=== PATIENT | female | born 1965 | race Caucasian/White ===

== ENCOUNTER 2017-11-15 18:18 | Emergency (ER) | payer MEDICAID ==
[2017-11-15] MEDS ORDERED: NS 0.9% 1000 ML* 1,000 ML IV ONE (18:46)
[2017-11-15] MEDS ORDERED: Meclizine TAB* 12.5 MG PO ONE (18:46)
--- NOTE | 2017-11-15 19:04 | ED ---
Dizziness - HPI Summary HPI Summary: 51-year-old female presents with intermittent vertigo since Monday. She admits to sinus congestion and bilateral ear pain greatest on the left. She states her vertigo is greatest with when laying down and to the left. She admits to intermittent chest tightness. She states that this chest tightness occurs once every other month. She states now one can find a cause for the chest tightness. She states this is no difference to the chest tightness except it never occurs with vertigo. She admits occasional shortness of breath. She admits to cough. She admits to a sore throat that started today. She admits to feeling warm but does not any known fevers. She denies abdominal pain. She denies any vomiting. States she is nauseous with the vertigo. She describes vertigo as the room spinning. She denies any headache. - History Of Current Complaint Chief Complaint: EDGeneral Stated Complaint: PROBLEM WITH BOTH EARS/CHEST PAIN Time Seen by Provider: 11/15/17 18:33 - Allergies/Home Medications Allergies/Adverse Reactions: Allergies Allergy/AdvReac Type Severity Reaction Status Date / Time Sulfa (Sulfonamide Allergy Anaphylatic Verified 11/15/17 19:54 Antibiotics) Shock PMH/Surg Hx/FS Hx/Imm Hx Endocrine/Hematology History: Denies: Hx Diabetes, Hx Thyroid Disease Cardiovascular History: Denies: Hx Congestive Heart Failure, Hx Deep Vein Thrombosis, Hx Hypertension , Hx Myocardial Infarction, Hx Pacemaker/ICD Respiratory History: Reports: Hx Asthma - Exercise-induced asthma. Denies: Hx Chronic Obstructive Pulmonary Disease (COPD), Hx Lung Cancer, Hx Pneumonia, Hx Pulmonary Embolism GI History: Reports: Hx Gastroesophageal Reflux Disease Denies: Hx Gall Bladder Disease, Hx Gastrointestinal Bleed, Hx Ulcer, Hx Urosepsis History: Denies: Hx Kidney Stones, Hx Renal Disease Sensory History: Denies: Hx Hearing Aid Neurological History: Denies: Hx Dementia, Hx Migraine, Hx Seizures, Hx Transient Ischemic Attacks (TIA) Psychiatric History: Denies: Hx Anxiety, Hx Depression, Hx Panic Disorder, Hx Schizophrenia, Hx Bipolar Disorder - Cancer History Hx Chemotherapy: No Hx Radiation Therapy: No - Surgical History Surgery Procedure, Year, and Place: HYSTERECTOMY. DEVIATED SEPTUM 1991 Infectious Disease History: Unable to Obtain/Confirm Infectious Disease History: Denies: Traveled Outside the [place] in Last 30 Days - Family History Known Family History: Positive: Cardiac Disease - grandfather - mi, Other - mother - osteoporosis No blood clotting problems in the family. - Social History Alcohol Use: Rare Hx Substance Use: No Substance Use Type: Reports: None Hx Tobacco Use: No Smoking Status (MU): Never Smoked Tobacco Review of Systems Negative: Fever Positive: Ear Ache, Nasal Discharge Positive: Chest Pain Positive: Shortness Of Breath, Cough Neurological: Other - vertigo All Other Systems Reviewed And Are Negative: Yes Physical Exam Triage Information Reviewed: Yes Vital Signs On Initial Exam: Initial Vitals Temp Pulse Resp BP Pulse Ox 99.3 F 76 16 134/76 100 11/15/17 18:26 11/15/17 18:26 11/15/17 18:26 11/15/17 18:26 11/15/17 18:26 Vital Signs Reviewed: Yes Appearance: Positive: Well-Appearing Skin: Positive: Warm, Dry Head/Face: Positive: Normal Head/Face Inspection Eyes: Positive: Normal, EOMI, WILBERT, Conjunctiva Clear, Other: - nystagmus on exam ENT: Positive: Normal ENT inspection, Pharynx normal, TMs normal Neck: Positive: Supple, Nontender, No Lymphadenopathy Respiratory/Lung Sounds: Positive: Clear to Auscultation, Breath Sounds Present Cardiovascular: Positive: Normal, RRR Abdomen Description: Positive: Nontender, Soft Bowel Sounds: Positive: Present Neurological: Positive: Sensory/Motor Intact, Alert, Oriented to Person Place, Time, CN Intact II-III, [place] [place] Test - to left positive Psychiatric: Positive: Normal Diagnostics - Vital Signs Vital Signs Temp Pulse Resp BP Pulse Ox 11/15/17 18:26 99.3 F 76 16 134/76 100 - Laboratory Result Diagrams: 11/15/17 18:52 11/15/17 18:52 Lab Statement: Any lab studies that have been ordered have been reviewed, and results considered in the medical decision making process. - Radiology chest Xray Interpretation: No Acute Changes Radiology Interpretation Completed By: Radiologist - EKG No standard instances Cardiac Rate: NL EKG Rhythm: Sinus Rhythm ST Segment: Normal EKG Interpretation: normal sinus rhythmn Re-Evaluation - Re-Evaluation First Eval Change: Improved Comment: feeling better after fluids and meclizine Dizzy Course/Dx - Course Course Of Treatment: 51-year-old female presents with intermittent vertigo since Monday. She admits to sinus congestion and bilateral ear pain greatest on the left. She states her vertigo is greatest with when laying down and to the left. She admits to intermittent chest tightness. She states that this chest tightness occurs once every other month. She states now one can find a cause for the chest tightness. She states this is no difference to the chest tightness except it never occurs with vertigo. She admits occasional shortness of breath. She admits to cough. She admits to a sore throat that started today. She admits to feeling warm but does not any known fevers. She denies abdominal pain. She denies any vomiting. States she is nauseous with the vertigo. She describes vertigo as the room spinning. She denies any headache. on exam has nystagmus. lungs CTA. pos lucie-hallpike. chest xray normal. labs wnl except flu B pos. will try steriod and tessalon for cough. will give meclizine for vertigo. could be BPPV vs vestibular neuritis. will have follow up with primary. patient understand and agrees with plan. - Diagnoses Differential Diagnosis/HQI/PQRI: Benign Paroxysmal Positional Vertigo, Hypovolemia, Labyrinthitis Provider Diagnoses: Influenza, Vertigo Discharge - Discharge Plan Condition: Good Disposition: HOME Prescriptions: Benzonatate CAP* [Tessalon 100 MG CAP*] 100 mg PO TID PRN #21 cap PRN Reason: Cough Meclizine TAB* [Antivert 12.5 TAB*] 25 mg PO QID PRN #16 tab PRN Reason: Vertigo predniSONE TAB* [Deltasone TAB*] 50 mg PO DAILY #4 tab Patient Education Materials: Vertigo (ED), Influenza (ED) Forms: *Work Release Referrals: Shiela Gustafson CASHIER [Primary Care Provider] - [facility] Physical therapy,PT [Medical Doctor] - Ronda Gonzalez MD [Medical Doctor] - Additional Instructions: Take meclizine up to 4 tablets a day for vertigo Take Tylenol and ibuprofen for muscle aches and fever every 6 hours Take steroid once a day for 4 more days Take tessalon three times a day for cough Saline rinse can be used multiple times a day for nasal congestion Can use bendaryl for nasal congestion Drink plenty of fluids Follow up with primary within 5 days Follow up with PT A referral was given for It [employer] Manager Return to ED if develop any new or worsening symptoms
[2017-11-15 19:05] LABS: ABS Basophils 0 10^3/ul (0-0.2); ABS Eosinophils 0.1 10^3/ul (0-0.6); ABS Lymphocytes 1.2 10^3/ul (1.0-4.8); ABS Monocytes 0.7 10^3/ul (0-0.8); ABS Neutrophils 2.8 10^3/ul (1.5-7.7); ABS Nucleated RBC 0 10^3/ul; Eosinophil % 2.5 % (0-6); Hematocrit 44 % (35-47); Hemoglobin 14.2 g/dl (12.0-16.0); Lymphocyte % 25.1 % (25-47); Mean Corpuscular HGB Conc 32 g/dl (31-36); Mean Corpuscular Hemoglobin 27 pg (27-31); Mean Corpuscular Volume 83 fL (80-97); Mean Platelet Volume 8 um3 (7.4-10.4); Nucleated Red Blood Cells % 0.1; Platelet Count 221 10^3/ul (150-450); Red Blood Count 5.33 10^6/ul (4.0-5.4); Red Cell Distribution Width 14 % (10.5-15); White Blood Count 4.8 10^3/ul (3.5-10.8)
[2017-11-15 19:23] LABS: EGFR Non-African American 79.7 (>60)
--- NOTE | 2017-11-15 20:05 | RAD ---
Indication: Cough. 2 views of the chest including dual energy PA views demonstrates no mediastinal shift. Heart is of normal size and configuration. Lung mauro are clear. IMPRESSION: No active cardiopulmonary disease is noted.
[2017-11-15 20:16] LABS: Urine Appearance Clear; Urine Blood Negative (Negative); Urine Color Yellow; Urine Ketones Trace (Negative); Urine Protein Negative (Negative); Urine Specific Gravity 1.026 (1.010-1.030); Urine Urobilinogen Negative (Negative)
[2017-11-15] MEDS ORDERED: Benzonatate CAP* 100 MG PO ONE (20:53)
[2017-11-15] MEDS ORDERED: predniSONE TAB* 20 MG PO ONE (20:53)
[2017-11-15] MEDS ORDERED: M eclizine 25 MG # 6 TABS 25 MG PAK PO ONE (20:54)
[2017-11-15 21:17] VITALS: BP 99/70
== END 2017-11-15 21:30 | disposition home or self-care (01) ==
LOC: ED 18:18
DX: J11.1 Influenza due to unidentified influenza virus with other respiratory manifestations (principal); R42 Dizziness and giddiness
CPT/HCPCS: 36415; 71046; 80053; 81003; 83605; 83735; 84443; 84484; 85025; 87502; 93005; 96360; 99284; A9270-GY; J7512

== ENCOUNTER 2017-11-22 12:06 | Emergency (ER) | payer BC ==
[2017-11-22] MEDS ORDERED: NS 0.9% 1000 ML* 1,000 ML IV ONE (18:19)
[2017-11-22] MEDS ORDERED: Acetaminophen TAB* 325 MG PO ONE (18:23)
--- NOTE | 2017-11-22 18:53 | RAD ---
INDICATION: Fever COMPARISON: November 15, 2017 TECHNIQUE: An AP portable view obtained at 1842 hours is submitted. FINDINGS: Bones/Soft Tissues: There are no acute bony findings. Cardiomediastinal: The cardiomediastinal silhouette is normal. Lungs: There are no infiltrates. Pleura: There are no pleural effusions. Other: None IMPRESSION: NORMAL CHEST, UNCHANGED
--- NOTE | 2017-11-22 19:04 | RAD ---
INDICATION: Headaches COMPARISON: None TECHNIQUE: Noncontrast axial source images were acquired from the skull base to the vertex. FINDINGS: Ventricles/sulci: The ventricles and cisterns are normal in size and configuration for age. Brain parenchyma: There is no focal parenchymal finding, evidence of intracranial mass, or intracranial mass effect. Intracranial hemorrhage:None. Extra-axial spaces: There are no abnormal extra axial fluid collections or evidence of extra-axial mass. Calvarium: There is no calvarial fracture or other calvarial abnormality. Scalp: There is no evidence of scalp or extracalvarial soft tissue abnormality. Paranasal sinuses/mastoid: The paranasal sinuses and mastoid air cells are clear. Other: None. IMPRESSION: NEGATIVE EXAMINATION
[2017-11-22 19:06] LABS: ABS Basophils 0 10^3/ul (0-0.2); ABS Eosinophils 0.1 10^3/ul (0-0.6); ABS Monocytes 0.5 10^3/ul (0-0.8); ABS Neutrophils 2.7 10^3/ul (1.5-7.7); ABS Nucleated RBC 0 10^3/ul; Eosinophil % 1.7 % (0-6); Hematocrit 46 % (35-47); Hemoglobin 15.4 g/dl (12.0-16.0); Lymphocyte % 47.2 % (25-47); Mean Corpuscular HGB Conc 34 g/dl (31-36); Mean Corpuscular Hemoglobin 28 pg (27-31); Mean Corpuscular Volume 82 fL (80-97); Mean Platelet Volume 8 um3 (7.4-10.4); Nucleated Red Blood Cells % 0.1; Platelet Count 265 10^3/ul (150-450); Red Blood Count 5.58 10^6/ul (4.0-5.4); Red Cell Distribution Width 14 % (10.5-15); White Blood Count 6.3 10^3/ul (3.5-10.8)
[2017-11-22 19:13] LABS: INR 0.9 (0.77-1.02)
[2017-11-22 19:24] LABS: EGFR Non-African American 87.5 (>60)
[2017-11-22] MEDS ORDERED: Meclizine TAB* 12.5 MG PO ONE (20:25)
[2017-11-22 20:40] LABS: Urine Appearance Clear; Urine Blood Negative (Negative); Urine Color Yellow; Urine Ketones Negative (Negative); Urine Protein Negative (Negative); Urine Specific Gravity 1.025 (1.010-1.030); Urine Urobilinogen Negative (Negative)
[2017-11-22] MEDS ORDERED: Amoxicillin PO (*) 500 MG CAP PO ONE (20:47)
--- NOTE | 2017-11-22 21:14 | ED ---
Neisha Jackson Julia, scribed for Primo Fox on 11/22/17 at 1919 . Influenza-Like Illness - HPI Summary HPI Summary: This patient is a 51 year old F presenting to [facility] with a chief complaint of L ear pain for the past few days and recent influenza B and vertigo dx on . Patient reports headache, dizziness, cold extremities, nausea, and loose stool. Patient denies LE edema, abdominal pain, vomiting, and diarrhea. The patient rates the pain 5/10 in severity. - History of Current Complaint Chief Complaint: EDFluSymptoms Time Seen by Provider: 11/22/17 17:28 Hx Obtained From: Patient Onset/Duration: Lasting Days Severity: Worse Since: - past couple of days Associated Signs & Symptoms: Cough, Headache - dizziness and L ear pain Related Hx: Possible Flu/Infectious Exposure - dx on 11/25/17 - Allergy/Home Medications Allergies/Adverse Reactions: Allergies Allergy/AdvReac Type Severity Reaction Status Date / Time Sulfa (Sulfonamide Allergy Anaphylatic Verified 11/15/17 19:54 Antibiotics) Shock PMH/Surg Hx/FS Hx/Imm Hx Endocrine/Hematology History: Denies: Hx Diabetes, Hx Thyroid Disease Cardiovascular History: Denies: Hx Congestive Heart Failure, Hx Deep Vein Thrombosis, Hx Hypertension , Hx Myocardial Infarction, Hx Pacemaker/ICD Respiratory History: Reports: Hx Asthma - Exercise-induced asthma. Denies: Hx Chronic Obstructive Pulmonary Disease (COPD), Hx Lung Cancer, Hx Pneumonia, Hx Pulmonary Embolism GI History: Reports: Hx Gastroesophageal Reflux Disease Denies: Hx Gall Bladder Disease, Hx Gastrointestinal Bleed, Hx Ulcer, Hx Urosepsis History: Denies: Hx Kidney Stones, Hx Renal Disease Sensory History: Denies: Hx Hearing Aid Neurological History: Denies: Hx Dementia, Hx Migraine, Hx Seizures, Hx Transient Ischemic Attacks (TIA) Psychiatric History: Denies: Hx Anxiety, Hx Depression, Hx Panic Disorder, Hx Schizophrenia, Hx Bipolar Disorder - Cancer History Hx Chemotherapy: No Hx Radiation Therapy: No - Surgical History Surgery Procedure, Year, and Place: HYSTERECTOMY. DEVIATED SEPTUM 1991 Infectious Disease History: No Infectious Disease History: Denies: Traveled Outside the [place] in Last 30 Days - Family History Known Family History: Positive: Cardiac Disease - grandfather - mi, Other - mother - osteoporosis No blood clotting problems in the family. - Social History Alcohol Use: Rare Hx Substance Use: No Substance Use Type: Reports: None Hx Tobacco Use: No Smoking Status (MU): Never Smoked Tobacco Review of Systems Positive: Ear Ache Gastrointestinal: Other - loose stool Positive: Nausea. Negative: Abdominal Pain, Vomiting, Diarrhea Positive: Other - cold extremities. Negative: Edema Neurological: Other - dizziness Positive: Headache All Other Systems Reviewed And Are Negative: Yes Physical Exam - Summary Physical Exam Summary: Appearance: Well appearing, no pain distress Skin: warm, dry, reflects adequate perfusion Head/face: normal Eyes: EOMI, WILBERT ENT: mild erythema lf ear canal Neck: supple, non-tender Respiratory: CTA, breath sounds present Cardiovascular: RRR, pulses symmetrical Abdomen: non-tender, soft Bowel: present Musculoskeletal: normal, strength/ROM intact Neuro: normal, sensory motor intact, A&Ox3 Triage Information Reviewed: Yes Vital Signs On Initial Exam: Initial Vitals Temp Pulse Resp BP Pulse Ox 98.6 F 71 20 135/98 100 11/22/17 12:08 11/22/17 12:08 11/22/17 12:08 11/22/17 12:08 11/22/17 12:08 Vital Signs Reviewed: Yes Diagnostics - Vital Signs Vital Signs Temp Pulse Resp BP Pulse Ox 11/22/17 19:16 98.4 F 62 15 120/71 100 11/22/17 17:38 98.5 F 11/22/17 14:00 98.6 F 65 18 112/73 100 11/22/17 12:08 98.6 F 71 20 135/98 100 - Laboratory Lab Results: Lab Results 11/22/17 11/22/17 Range/Units 18:30 18:30 WBC 6.3 (3.5-10.8) 10^3/ul RBC 5.58 H (4.0-5.4) 10^6/ul Hgb 15.4 (12.0-16.0) g/dl Hct 46 (35-47) % MCV 82 (80-97) fL MCH 28 (27-31) pg MCHC 34 (31-36) g/dl RDW 14 (10.5-15) % Plt Count 265 (150-450) 10^3/ul MPV 8 (7.4-10.4) um3 Neut % (Auto) 42.5 (38-83) % Lymph % (Auto) 47.2 H (25-47) % [place] % (Auto) 8.0 (1-9) % Eos % (Auto) 1.7 (0-6) % Baso % (Auto) 0.6 (0-2) % Absolute Neuts (auto) 2.7 (1.5-7.7) 10^3/ul Absolute Lymphs (auto) 3.0 (1.0-4.8) 10^3/ul Absolute Monos (auto) 0.5 (0-0.8) 10^3/ul Absolute Eos (auto) 0.1 (0-0.6) 10^3/ul Absolute Basos (auto) 0 (0-0.2) 10^3/ul Absolute Nucleated RBC 0 10^3/ul Nucleated RBC % 0.1 INR (Anticoag Therapy) 0.90 (0.77-1.02) APTT 29.5 (26.0-36.3) seconds Result Diagrams: 11/22/17 18:30 11/22/17 18:30 Lab Statement: Any lab studies that have been ordered have been reviewed, and results considered in the medical decision making process. - Radiology CXR Radiology Interpretation Completed By: Radiologist - NORMAL CHEST, UNCHANGED. ED Physician has reviewed this report. - CT Brain CT Interpretation Completed By: Radiologist - NEGATIVE EXAMINATION. ED Physician has reviewed this report. - EKG 1827 Cardiac Rate: NL - at 60 EKG Rhythm: Sinus Rhythm EKG Interpretation: no acute changes Flu Symptom Course/Dx - Course Course Of Treatment: Patient presents with L ear pain,dizziness, and fever. Patient has recent vertigo and influenza B diagnosis on 11/15/17. Bloodwork and Urine is collected and unremarkable. Brain CT, CXR, and EKG are unremarkable. Patient is given Antivert, Amoxycillin, and Tylenol. - Diagnoses Differential Diagnosis/HQI/PQRI: Positive: Bronchitis, Influenza, Pneumonia, Upper Respiratory Infection, Other - otitis media Provider Diagnoses: Otitis media, Viral syndrome, Vertigo Discharge - Discharge Plan Condition: Stable Disposition: HOME Prescriptions: Amoxicillin PO (*) [Amoxicillin 875 MG (*)] 875 mg PO BID #20 tab Meclizine TAB* [Antivert 12.5 TAB*] 25 mg PO TID PRN #20 tab MDD 3 PRN Reason: Dizziness Patient Education Materials: Vertigo (ED), Ear Infection (ED) Referrals: Shiela Gustafson, [employer] [Primary Care Provider] - 3 Days The documentation as recorded by the Neisha ramires Julia accurately reflects the service I personally performed and the decisions made by Dominique weaver Emmanuel.
[2017-11-22 21:15] VITALS: BP 109/74
== END 2017-11-22 21:15 | disposition home or self-care (01) ==
LOC: ED 12:06
DX: H66.90 Otitis media, unspecified, unspecified ear (principal); B34.9 Viral infection, unspecified; R42 Dizziness and giddiness; Z88.2 Allergy status to sulfonamides
CPT/HCPCS: 36415; 70450; 71045; 80053; 81003; 82550; 83605; 83735; 83880; 84484; 84702; 85025; 85610; 85730; 93005; 99283; A9270-GY

== ENCOUNTER 2019-02-19 12:44 | Emergency (ER) | payer BC ==
--- OUTSIDE RECORDS SUMMARY | 2019-02-19 13:14 | XMS REPORT | Continuity of Care Document ---
:1965 External Reference #:[id number] Author Name EDUAR Blount Address [address] [facility] [place] [address] Care Team Providers Name Role Phone Mac Felipe MD Care Team Information Handle Turner Unavailable Mac Felipe MD Primary Care Physician Unavailable Payers Date Identification Numbers Payment Provider Subscriber Effective: 2018 Policy Number: [id number] [place] Plan Ben Dobbins PayID: [id number] [address] [place] [address] Advance Directives Description No Information Available Problems Description No Information Family History Date Family Member(s) Observation Comments Mother Breast Cancer premenopausal. Social History Type Date Description Comments Sex Unknown Tobacco Use Start: Unknown Nonsmoker but had heavy exposure as a child and her fiancee of 8 yrs smokes heavily. Smoking Status Reviewed: 02/22/18 Nonsmoker but had heavy exposure as a child and her fiancee of 8 yrs smokes heavily. 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 Vitamin B Complex 1 by mouth every Unknown day Tablets Vitamin C TR 1 by mouth every Unknown 500mg day Tablets ER Vitamin D 1 by mouth every Unknown 1000Unit day otc Tablets Acitretin Unknown 10mg Capsules Gabapentin 1 by mouth AT hs Unknown 300mg Capsules History Medications Montelukast Sodium once daily 30tabs J30.2 Mac Felipe, 2017 - 10mg 03/23/2018 Tablets Immunizations CPT Code Status Date Vaccine Lot # [id number] Given 02/22/2018 Tdap Tetanus, W Pertussis [id number] Vital Signs Date Vital Result Comment 01/31/2019 10:27am BP Systolic 112 mmHg BP Diastolic 78 mmHg Heart Rate 60 /min Body Temperature 97.8 F Respiratory Rate 16 /min Weight 215.00 lb 01/09/2019 10:04am BP Systolic 110 mmHg BP Diastolic 64 mmHg Heart Rate 76 /min Body Temperature 98.1 F Respiratory Rate 18 /min Height 63 inches 5'3" Weight 212.00 lb BMI (Body Mass Index) 37.6 kg/m2 03/23/2018 4:21pm BP Systolic 98 mmHg BP Diastolic 62 mmHg Heart Rate 76 /min Body Temperature 97.3 F Respiratory Rate 16 /min Height 63 inches 5'3" Weight 204.50 lb BMI (Body Mass Index) 36.2 kg/m2 02/22/2018 10:18am BP Systolic 110 mmHg BP Diastolic 84 mmHg Heart Rate 76 /min Body Temperature 97.4 F Respiratory Rate 16 /min Height 63 inches 5'3" Weight 202.50 lb BMI (Body Mass Index) 35.9 kg/m2 Right Visual Acuity Distance 20/30 Left Visual Acuity Distance 20/40 Results Test Date Facility Test Result H/L Range Note Laboratory test 01/31/2019 [facility] Oconnell(fma) Free T4 <pending> 0.75- 1.54 finding TSH <pending> 0.5-5.0 Laboratory test 01/31/2019 [facility] Antinuclear <pending> finding [address] Antibodies ([place]), [place] [address] By Ifa ([phone] - Comprehensive 02/28/2018 [facility] Oconnell(fma) Sodium 136 mEq/L 134-14 Metabolic Prof 9 Potassium 5.0 mEq/L 3.6-5.5 Chloride 105 mEq/L 94-112 Carbon Dioxide 26 mEq/L 21-32 Glucose 86 mg/dL 70-105 BUN 8 mg/dL 6-26 Creatinine 0.7 mg/dL 0.6-1.4 BUN/Creat Ratio 11.4 CALC 8.0-36.0 Calcium 8.7 mg/dL 8.6-10.2 Total Protein 6.2 g/dL Low 6.4-8.3 1 Albumin 4.1 g/dL 3.8-5.5 Globulin 2.1 g/dL 2.0-4.8 A/G Ratio 2.0 CALC 0.6-2.3 Alk. Phosphatase 46 U/L 30-110 Alt (SGPT) 10 U/L 7-35 Ast (Sgot) 12 U/L 5-34 Total Bilirubin 0.5 mg/dL 0.2-1.3 GFR Non- >60 ml/min/1.73m^ >=60 GFR >60 ml/min/1.73m^ >=60 Lipid Profile 02/28/2018 [facility]) Cholesterol 179 mg/dL 120- 200 Triglycerides 112 mg/dL 30-200 HDL Cholesterol 42 mg/dL 30-85 LDL (Calculated) 115 CALC 0-129 VLDL Cholesterol 22 mg/dL 0-50 HDL Risk Factor 4.3 CALC 0.0-4.4 Laboratory test finding 02/28/2018 Nitin Kourtney([facility]) TSH 2.23 mIU/L 0.50-6.00 CBC Electronic Fma 02/28/2018 [facility]) WBC 5.9 x10^3/UL 4.0- 10.0 RBC 5.35 x10^6/UL 3.93-6.00 HGB 14.5 g/dL 12.0-17.0 HCT 45 % 35-50 MCV 84.7 fL 80.0-95.0 MCH 27.1 pg 25.6-32.2 MCHC 32.0 g/dL Low 32.2-36.0 RDW-CV 13.6 % 11.6-14.4 PLT 285 x10^3/UL 163-400 MPV 9.7 fL 9.4-12.4 [place]# 3.20 x10^3/UL 1.56-6.13 Lymph# 1.94 x10^3/UL 1.18-3.74 [place]# 0.53 x10^3/UL 0.24-0.82 Eos # 0.2 x10^3/UL 0.0-0.5 Baso # 0.03 x10^3/UL 0.01-0.08 [place]% 54.6 % 34.0-70.0 Lymph % 33.1 % 20.0-52.0 [place]% 9.0 % 5.0-12.0 Eos% 2.6 % 0.7-7.0 Baso% 0.5 % 0.1-1.2 1 RESULTS VERIFIED BY REPEAT ANALYSIS Procedures Date Code Description Status 01/31/2019 [id number] Mammogram Completed 02/22/2018 28607 Vision Test- screening test of visual acuity, Completed quantitative, bila 10/27/2015 [id number] Colonoscopy Completed Encounters Type Date Location Provider Dx Diagnosis Office Visit 01/09/2019 [facility] Minoo M25.572 Pain in left 10:00a EDUAR Tolliver ankle and joints of left foot M54.5 Low back pain R14.0 Abdominal distension (gaseous) Office Visit 03/23/2018 4:20p [facility] Mac Casas R42 Dizziness and MD Matteo giddiness M19.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, right ankle and foot M19.172 Post-traumatic osteoarthritis, left ankle and foot Office Visit 02/22/2018 10:20a [facility] Mac Casas Z00.00 Encntr for MD Matteo general adult medical exam w/o abnormal findings H81.13 Benign paroxysmal vertigo, bilateral M25.579 Pain in unspecified ankle and joints of unspecified foot J30.2 Other seasonal allergic rhinitis Z23 Encounter for immunization Plan of Treatment Future Appointment(s):02/22/2019 4:30 pm - EDUAR Blount at [id number]/31/2019 - ALEXIS BlountPM54.5 Low back painComments:PT-- Vicki or JpyttyfO80.572 Pain in left ankle and joints of left footR14.0 Abdominal distension (gaseous)R19.4 Change in bowel lbpchJ51.3 Family history of malignant neoplasm of twczypO99.31 Encounter for screening mammogram for malignant neoplasm ofZ01.419 Encounter for gynecological examination (general) ( routine)F34.1 Dysthymic disorderComments:You are clinically depressed and I want to help with thatWhat works: exercise (tough on right now)better sleepmeditation/mindfulness/prayertherapyMedication if we need it3-4 weeks follow-up phone eawkkL52.9 Anxiety disorder, zdybfjljczrN02.83 Other fatigueComments:The patient was instructed to call or return to the office if there was no improvement . Better sleepImprove routine, try to eliminate TVNice routine-- bathing, aromatherapy, white noise, ooerxlfW59.00 Insomnia, unspecifiedNew Medication:Diazepam 2 mg - 1 po nightly for sleepComments:set the scene for sleep-- your brain needs a recognizable, gentle pattern to followuse medication initially to induce longer/deeper sleep-- I hope you won't need this longterm, but we will re-gkeehktxQ64.2 Pelvic and perineal painAllComments:Medication Management Patient Understands medications he 's taking? Yes No Are there Barriers to Adherence? Yes No Has the patient been asked about herbal supplements and therapies, andOTC meds? Yes No As always, we strongly encourage a healthy diet and making physical activity a part of your every day life. If you have questions about how or where to start, please contact the office.
--- NOTE | 2019-02-19 14:20 | ED ---
Abdominal Pain/Female - HPI Summary HPI Summary: This patient is a 53 year old female presenting to [facility] with a chief complaint of LLQ pain since two days ago. She states the pain initially radiated to her back. She reports blood in her stool. The patient states her mother has a Hx of colitis and that she described having similar symptoms. She rates her pain 3/10 in severity. - History of Current Complaint Chief Complaint: EDAbdPain Stated Complaint: ABD PAIN, BLOODY STOOL PER PT Time Seen by Provider: 02/19/19 14:13 Hx Obtained From: Patient Hx Last Menstrual Period: Hyst 2013 Severity Initially: Mild Severity Currently: Mild Pain Intensity: 3 Pain Scale Used: 0-10 Numeric Location: Discrete At: LLQ Radiates: Yes Radiates to: Back Allergies/Adverse Reactions: Allergies Allergy/AdvReac Type Severity Reaction Status Date / Time Sulfa (Sulfonamide Allergy Anaphylatic Verified 02/05/19 13:52 Antibiotics) Shock Home Medications: Home Medications Diazepam TAB(NF) [Valium TAB(NF)] 1 mg PO DAILY 02/19/19 [History Confirmed ] Multivitamins/Minerals TAB* [Theragran/minerals TAB*] 1 tab PO DAILY 02/19/19 [ History Confirmed 02/19/19] PMH/Surg Hx/FS Hx/Imm Hx Endocrine/Hematology History: Denies: Hx Diabetes, Hx Thyroid Disease Cardiovascular History: Denies: Hx Congestive Heart Failure, Hx Deep Vein Thrombosis, Hx Hypertension , Hx Myocardial Infarction, Hx Pacemaker/ICD Respiratory History: Reports: Hx Asthma - Exercise-induced asthma. Denies: Hx Chronic Obstructive Pulmonary Disease (COPD), Hx Lung Cancer, Hx Pneumonia, Hx Pulmonary Embolism GI History: Reports: Hx Gastroesophageal Reflux Disease Denies: Hx Gall Bladder Disease, Hx Gastrointestinal Bleed, Hx Ulcer, Hx Urosepsis History: Denies: Hx Kidney Stones, Hx Renal Disease Sensory History: Denies: Hx Hearing Aid Neurological History: Denies: Hx Dementia, Hx Migraine, Hx Seizures, Hx Transient Ischemic Attacks (TIA) Psychiatric History: Denies: Hx Anxiety, Hx Depression, Hx Panic Disorder, Hx Schizophrenia, Hx Bipolar Disorder - Cancer History Hx Chemotherapy: No Hx Radiation Therapy: No - Surgical History Surgery Procedure, Year, and Place: HYSTERECTOMY. DEVIATED SEPTUM 1991. WISDOM TEETH Infectious Disease History: No Infectious Disease History: Denies: Traveled Outside the [place] in Last 30 Days - Family History Known Family History: Positive: Cardiac Disease - grandfather - mi, Other - mother - osteoporosis No blood clotting problems in the family. - Social History Alcohol Use: Rare Hx Substance Use: No Substance Use Type: Reports: None Hx Tobacco Use: No Smoking Status (MU): Never Smoked Tobacco Review of Systems Positive: Abdominal Pain Positive: other - Blood in stool All Other Systems Reviewed And Are Negative: Yes Physical Exam - Summary Physical Exam Summary: Appearance: The patient is well-nourished in no acute distress and in no acute pain. Skin: The skin is warm and dry and skin color reflects adequate perfusion. HEENT: The head is normocephalic and atraumatic. The pupils are equal and reactive. The conjunctivae are clear and without drainage. Nares are patent and without drainage. Mouth reveals moist mucous membranes and the throat is without erythema and exudate. The external ears are intact. The ear canals are patent and without drainage. The tympanic membranes are intact. Neck: The neck is supple with full range of motion and non-tender. There are no carotid bruits. There is no neck vein distension. Respiratory: Chest is non-tender. Lungs are clear to auscultation and breath sounds are symmetrical and equal. Cardiovascular: Heart is regular rate and rhythm. There is no murmur or rub auscultated. There is no peripheral edema and pulses are symmetrical and equal. Abdomen: The abdomen is soft and mild lower abdominal tenderness. There are normal bowel sounds heard in all four quadrants and there is no organomegaly palpated. Musculoskeletal: There is no back tenderness noted. Extremities are non-tender with full range of motion. There is good capillary refill. There is no peripheral edema or calf tenderness elicited. Neurological: Patient is alert and oriented to person, place and time. The patient has symmetrical motor strength in all four extremities. Cranial nerves are grossly intact. Deep tendon reflexes are symmetrical and equal in all four extremities. Psychiatric: The patient has an appropriate affect and does not exhibit any anxiety or depression. Triage Information Reviewed: Yes Vital Signs On Initial Exam: Initial Vitals Temp Pulse Resp BP Pulse Ox 99.0 F 71 18 111/76 100 02/19/19 12:49 02/19/19 12:49 02/19/19 12:49 02/19/19 12:49 02/19/19 12:49 Vital Signs Reviewed: Yes Diagnostics - Vital Signs Vital Signs Temp Pulse Resp BP Pulse Ox 02/19/19 12:49 99.0 F 71 18 111/76 100 - Laboratory Result Diagrams: 02/19/19 14:28 02/19/19 14:28 Lab Statement: Any lab studies that have been ordered have been reviewed, and results considered in the medical decision making process. - CT Abdomen/pelvis CT Interpretation Completed By: Radiologist Summary of CT Findings: Innumerable cysts are noted in the liver. No abnormal masses or fluid collections are noted. No evidence of obstructive uropathy is noted. ED Provider has reviewed this report. Abdominal Pain Fem Course/Dx - Course Course Of Treatment: Ms. Dobbins has been having episodes of left lower quadrant pain accompanied by some nausea and vomiting and loose stools for several months. She had her worst episode ever last night and so she came into the department. Her mother has had a history of diverticulitis and the patient was concerned she may have that also. She was nontoxic in appearance with stable vitals. She was mildly tender diffusely in the lower abdomen. Labs and CT were unremarkable. I recommended follow-up she may need GI consult and scoping. - Diagnoses Provider Diagnoses: Abdominal pain Discharge - Sign-Out/Discharge Documenting (check all that apply): Patient Departure - Discharge Patient Received Moderate/Deep Sedation with Procedure: No - Discharge Plan Condition: Stable Disposition: HOME Patient Education Materials: Abdominal Pain (ED) Referrals: Mac Felipe MD [Primary Care Provider] - Additional Instructions: Return to ED with any new or worsening symptoms. Follow up with your primary care provider. - Billing Disposition and Condition Condition: STABLE Disposition: Home - Attestation Statements Document Initiated by Stevie: Yes Documenting Scribe: Haja Kinney Provider For Whom Stevie is Documenting (Include Credential): Tab Perdomo MD Scribe Attestation: Haja Jackson, miladyed for Tab Perdomo MD on 02/19/19 at 1609. Scribe Documentation Reviewed: Yes Provider Attestation: The documentation as recorded by the Haja ramires accurately reflects the service I personally performed and the decisions made by me, Tab Perdomo MD Status of Scribe Document: Viewed
[2019-02-19 14:57] LABS: ABS Eosinophils 0.1 10^3/ul (0-0.6); ABS Lymphocytes 2.4 10^3/ul (1.0-4.8); ABS Monocytes 0.8 10^3/ul (0-0.8); ABS Neutrophils 5.7 10^3/ul (1.5-7.7); Eosinophil % 0.9 %; Hematocrit 43 % (35-47); Hemoglobin 13.9 g/dL (12.0-16.0); Lymphocyte % 26.2 %; Mean Corpuscular HGB Conc 33 g/dL (31-36); Mean Corpuscular Hemoglobin 27 pg (27-31); Mean Corpuscular Volume 82 fL (80-97); Mean Platelet Volume 7.9 fL (7.4-10.4); Platelet Count 259 10^3/uL (150-450); Red Blood Count 5.22 10^6 /uL (3.70-4.87); Red Cell Distribution Width 14 % (10.5-15)
[2019-02-19 14:59] LABS: Urine Appearance Clear; Urine Bilirubin Negative (Negative); Urine Blood Negative (Negative); Urine Color Yellow; Urine Glucose Negative (Negative); Urine Ketones Negative (Negative); Urine Nitrite Negative (Negative); Urine Protein Negative (Negative); Urine Specific Gravity 1.021 (1.010-1.030); Urine Urobilinogen Negative (Negative)
[2019-02-19 15:00] LABS: Albumin 4.2 g/dL (3.2-5.2); Albumin/Globulin Ratio 1.8 (1-3); BUN/Creatinine Ratio 15.8 (8-20); C Reactive Protein 1.72 mg/L (<8.01); EGFR African American 97.1 (>60); EGFR Non-African American 80.2 (>60); Globulin 2.4 g/dL (2-4); Potassium 3.6 mmol/L (3.5-5.0); Total Bilirubin 0.4 mg/dL (0.2-1.0); Total Protein 6.6 g/dL (6.4-8.9)
[2019-02-19 16:32] VITALS: BP 118/69
== END 2019-02-19 16:31 | disposition home or self-care (01) ==
LOC: ED 12:44
DX: R10.32 Left lower quadrant pain (principal); K92.1 Melena; R11.2 Nausea with vomiting, unspecified; Z88.2 Allergy status to sulfonamides
CPT/HCPCS: 36415; 74176; 80053; 81003; 83605; 83690; 85025; 86140; 99282

== ENCOUNTER 2019-06-23 13:22 | Emergency (ER) | payer BC ==
--- OUTSIDE RECORDS SUMMARY | 2019-06-23 13:38 | XMS REPORT | Continuity of Care Document ---
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 Smoking Status Reviewed: 05/15/19 Nonsmoker but had heavy exposure as a child and her fiancee of 8 yrs smokes heavily. Allergies, Adverse Reactions, Alerts Active Allergies Reaction Severity Comments Date Sulfa Anaphylaxis 02/22/2018 Medications Active Medications SIG Qnty Indications Ordering Provider Date Meclizine HCL 1 by mouth three 30tabs R42 Minoo 06/19/2019 12.5mg times a day as Sharee, HOME HEALTH CARE WORKER Tablets needed dizziness Flonase Allergy 1 spray to each 9.900ml H92.02 Minoo 06/19/2019 Relief nostril every day Sharee, HOME HEALTH CARE WORKER 50mcg/Act Suspension Bupropion HCL Start 1/2 tablet 45tabs F33.9 Mac Casas 05/22/2019 75mg daily, increase MD Matteo Tablets to full tablet after 3-4 days if no stomach upset. Vitamin B Complex 1 by mouth every Unknown day Tablets Vitamin C TR 1 by mouth every Unknown 500mg day Tablets ER Vitamin D 1 by mouth every Unknown 1000Unit day otc Tablets Vitamin A Unknown [id number] Capsules History Medications Bupropion Start 1/2 30tabs F33.9 Mac Augusto 05/22/2019 - Hydrochloride ER tablet daily. MD Matteo 05/22/2019 (SR) increase to 150mg Tablets ER full tablet 12HR after a few days and no stomach upset Diazepam 1 po nightly 30tabs G47.00 Minoo Sappbhart, 01/31/2019 - 2mg Tablets for sleep HOME HEALTH CARE WORKER 05/15/2019 Naproxen 1 by mouth 60tabs M25.572 Minoo Sappbhart, 01/09/2019 - 500mg twice a day HOME HEALTH CARE WORKER 02/20/2019 Tablets with food Immunizations CPT Code Status Date Vaccine Lot # [id number] Given 02/22/2018 Tdap Tetanus, W Pertussis [id number] Vital Signs Date Vital Result Comment 06/19/2019 11:36am BP Systolic 106 mmHg BP Diastolic 70 mmHg Heart Rate 72 /min Body Temperature 98.7 F Respiratory Rate 18 /min Weight 216.00 lb 05/22/2019 4:01pm BP Systolic 110 mmHg BP Diastolic 74 mmHg Heart Rate 66 /min Body Temperature 98.1 F Results Test Date Facility Test Result H/L Range Note Laboratory test 05/15/2019 [facility] Quickstrep neg Negative finding (607)- - Ua - Non Micro (Fma) 05/15/2019 [facility] Appearance CLEAR (607)- - Color YELLOW Glucose, Urine (Fma/CMC/CTX) NEG Bilirubin NEG Ketones TRACE SP Grav 1.025 Blood NEG PH 5.0 Protein NEG Urobil 0.2 Nitrite NEG Leukocytes (Fma/CMC/Centrex) NEG Comprehensive Metabolic 05/15/2019 [facility] Kourt[facility]) Sodium 144 mEq/L 134-149 Prof Potassium 4.4 mEq/L 3.6-5.5 Chloride 106 mEq/L 94-112 Carbon Dioxide 23 mEq/L 21-32 Glucose 109 mg/dL High 70-105 BUN 11 mg/dL 6-26 Creatinine 0.7 mg/dL 0.6-1.4 BUN/Creat Ratio 15.7 CALC 8.0-36.0 Calcium 8.8 mg/dL 8.6-10.2 Total Protein 6.4 g/dL 6.4-8.3 Albumin 4.3 g/dL 3.8-5.5 Globulin 2.1 g/dL 2.0-4.8 A/G Ratio 2.0 CALC 0.6-2.3 Alk. Phosphatase 45 U/L 30-110 Alt (SGPT) 10 U/L 7-35 Ast (Sgot) 13 U/L 5-34 Total Bilirubin 0.4 mg/dL 0.2-1.3 GFR Non- >60 ml/min/1.73m^ >=60 GFR >60 ml/min/1.73m^ >=60 CBC Electronic Fma 05/15/2019 [facility] Kourt[facility]) WBC 5.8 x10^3/UL 4.0- 10.0 RBC 5.16 x10^6/UL 3.93-6.00 HGB 13.8 g/dL 12.0-17.0 HCT 44 % 35-50 MCV 84.7 fL 80.0-95.0 MCH 26.7 pg 25.6-32.2 MCHC 32.6 g/dL 32.2-36.0 RDW-CV 13.8 % 11.6-14.4 PLT 250 x10^3/UL 163-400 MPV 9.2 fL Low 9.4-12.4 Villa# 3.44 x10^3/UL 1.56-6.13 Lymph# 1.79 x10^3/UL 1.18-3.74 [place]# 0.48 x10^3/UL 0.24-0.82 Eos # 0.1 x10^3/UL 0.0-0.5 Baso # 0.01 x10^3/UL 0.01-0.08 Villa% 59.1 % 34.0-70.0 Lymph % 30.8 % 20.0-52.0 [place]% 8.2 % 5.0-12.0 Eos% 1.5 % 0.7-7.0 Baso% 0.2 % 0.1-1.2 Babesia Microti 05/15/2019 [facility] Babesia microti <1:10 Neg:<1:10 1 AB Panel [address] [place] [address] [place] [address] ([phone] - Babesia microti IgG <1:10 Neg:<1:10 2 Lyme Antibody, Line 05/15/2019 [facility] IgG P93 Ab. Absent Blot, Serum [address] [place] [phone] (605)- - IgG P66 Ab. Absent IgG P58 Ab. Absent IgG P45 Ab. Absent IgG P41 Ab. Absent IgG P39 Ab. Absent IgG P30 Ab. Absent IgG P28 Ab. Absent IgG P23 Ab. Absent IgG P18 Ab. Absent Lyme IgG LB Interp. Negative 3 IgM P41 Ab. Absent IgM P39 Ab. Absent IgM P23 Ab. Absent Lyme IgM LB Interp. Negative 4 Ehrlichiosis Panel 05/15/2019 [facility] E. chaffeensis Negative Neg:<1:[address] [place] [address] (E) [place] [address] (923)- - E. chaffeensis ([facility]ME) IgM Titer Negative Neg:<1:20 5 Hge IgG Titer Negative Neg:<1:64 6 Hge IgM Titer Negative Neg:<1:20 7 Ebv Acute Infection 05/15/2019 [facility] Ebv Ab Vca, <36.0 U/mL 0.0-35.9 8 Antibodies Profile [address] [facility] [place] [address] (921)- - Ebv Early Antigen Ab, IgG 16.9 U/mL High 0.0-8.9 9 Ebv Ab Vca, IgG 51.8 U/mL High 0.0-17.9 10 Ebv Nuclear Antigen Ab, IgG 135.0 U/mL High 0.0-17.9 11 Interpretation: See Comment: 12 Laboratory test finding 02/19/2019 [facility] Lipase 25 U/L Normal 11.0-82.0 C Reactive Protein 1.72 mg/L Normal <8.01 Comp Metabolic Panel 02/19/2019 [facility] Sodium 141 mmol/L Normal 135-145 Potassium 3.6 mmol/L Normal 3.5-5.0 Chloride 110 mmol/L Normal 101-111 Co2 Carbon Dioxide 27 mmol/L Normal 22-32 Anion Gap 4 mmol/L Normal 2-11 Glucose 95 mg/dL Normal 70-100 Blood Urea Nitrogen 12 mg/dL Normal 6-24 Creatinine 0.76 mg/dL Normal 0.51-0.95 BUN/Creatinine Ratio 15.8 Normal 8-20 Calcium 9.0 mg/dL Normal 8.6-10.3 Total Protein 6.6 g/dL Normal 6.4-8.9 Albumin 4.2 g/dL Normal 3.2-5.2 Globulin 2.4 g/dL Normal 2-4 Albumin/Globulin Ratio 1.8 Normal 1-3 Total Bilirubin 0.40 mg/dL Normal 0.2-1.0 Alkaline Phosphatase 49 U/L Normal 34-104 Alt 9 U/L Normal 7-52 Ast 13 U/L Normal 13-39 Egfr Non- 80.2 >60 Egfr 97.1 >60 13 Laboratory test finding 02/19/2019 [facility] Lactic Acid 0.7 mmol/L Normal 0.5- 2.0 14 Urinalysis Profile 02/19/2019 [facility] Urine Color Yellow Urine Appearance Clear Urine Specific [place] 1.021 Normal 1.010-1.030 Urine pH 5.0 Normal 5-9 Urine Urobilinogen Negative Negative Urine Ketones Negative Negative Urine Protein Negative Negative Urine Leukocytes Negative Negative Urine Blood Negative Negative * * Abnormal Negative 15 Urine Nitrite Negative Negative Urine Bilirubin Negative Negative Urine Glucose Negative Negative CBC Auto Diff 02/19/2019 [facility] White Blood Count 9.0 10^3/uL Normal 3.5- 10.8 Red Blood Count 5.22 10^6/uL High 3.70-4.87 Hemoglobin 13.9 g/dL Normal 12.0-16.0 Hematocrit 43 % Normal 35-47 Mean Corpuscular Volume 82 fL Normal 80-97 Mean Corpuscular Hemoglobin 27 pg Normal 27-31 Mean Corpuscular HGB Conc 33 g/dL Normal 31-36 Red Cell Distribution Width 14 % Normal 10.5-15 Platelet Count 259 10^3/uL Normal 150-450 Mean Platelet Volume 7.9 fL Normal 7.4-10.4 Abs Neutrophils 5.7 10^3/uL Normal 1.5-7.7 Abs Lymphocytes 2.4 10^3/uL Normal 1.0-4.8 Abs Monocytes 0.8 10^3/uL Normal 0-0.8 Abs Eosinophils 0.1 10^3/uL Normal 0-0.6 Abs Basophils 0.0 10^3/uL Normal 0-0.2 Abs Nucleated RBC 0.0 10^3/uL Granulocyte % 63.2 % Lymphocyte % 26.2 % Monocyte % 9.3 % Eosinophil % 0.9 % Basophil % 0.4 % Nucleated Red Blood Cells % 0.0 Xray 02/11/2019 [facility] MRI Pelvis SEE ATTACHED [phone] W/O Contrast Comprehensive 01/31/2019 Nitin Kourtney([facility]) Sodium 142 mEq/L 134-1 Metabolic Prof 49 Potassium 4.2 mEq/L 3.6-5.5 Chloride 104 mEq/L 94-112 Carbon Dioxide 25 mEq/L 21-32 Glucose 90 mg/dL 70-105 BUN 15 mg/dL 6-26 Creatinine 0.7 mg/dL 0.6-1.4 BUN/Creat Ratio 21.4 CALC 8.0-36.0 Calcium 9.1 mg/dL 8.6-10.2 Total Protein 6.5 g/dL 6.4-8.3 Albumin 4.4 g/dL 3.8-5.5 Globulin 2.1 g/dL 2.0-4.8 A/G Ratio 2.1 CALC 0.6-2.3 Alk. Phosphatase 55 U/L 30-110 Alt (SGPT) 15 U/L 7-35 Ast (Sgot) 18 U/L 5-34 Total Bilirubin 0.4 mg/dL 0.2-1.3 GFR Non- >60 ml/min/1.73m^ >=60 GFR >60 ml/min/1.73m^ >=60 Laboratory test 01/31/2019 Nitin Kourtney([facility]) Free T4 0.94 ng/dL 0.75- 1.54 finding TSH 2.56 mIU/L 0.50-6.00 CBC Electronic a 01/31/2019 Nitin Kourtney([facility]) WBC 5.8 x10^3/UL 4.0- 10.0 RBC 4.99 x10^6/UL 3.93-6.00 HGB 13.4 g/dL 12.0-17.0 HCT 42 % 35-50 MCV 84.8 fL 80.0-95.0 MCH 26.9 pg 25.6-32.2 MCHC 32.0 g/dL Low 32.2-36.0 16 RDW-CV 13.7 % 11.6-14.4 PLT 273 x10^3/UL 163-400 MPV 9.3 fL Low 9.4-12.4 Vilal# 3.00 x10^3/UL 1.56-6.13 Lymph# 2.23 x10^3/UL 1.18-3.74 [place]# 0.53 x10^3/UL 0.24-0.82 Eos # 0.1 x10^3/UL 0.0-0.5 Baso # 0.01 x10^3/UL 0.01-0.08 Villa% 51.3 % 34.0-70.0 Lymph % 38.2 % 20.0-52.0 [place]% 9.1 % 5.0-12.0 Eos% 1.2 % 0.7-7.0 Baso% 0.2 % 0.1-1.2 Laboratory test 01/31/2019 [facility] Antinuclear Negative 17, 18 finding [address] [facility] Antibodies, [place] [address] (607)- - Rheumatoid 01/31/2019 [facility] Ra Latex Turbid. <10.0 IU/mL 0.0-1 Arthritis Factor [address] [facility] 3.9 ([facility]) [place] [address] (606)- - 1 3 ssts 2 This test was developed and its performance characteristics determined by [employer]. It has not been cleared or approved by the U.S. Food and Drug Administration. The FDA has determined that such clearance or approval is not necessary. This test is used for clinical purposes. It should not be regarded as investigational or research. 3 Positive: 5 of the following Borrelia-specific bands: 18,23,28,30,39,41,45,58, 66, and 93. Negative: No bands or banding patterns which do not meet positive criteria. 4 Note: An equivocal or positive EIA result followed by a negative Western Blot result is considered NEGATIVE. An equivocal or positive EIA result followed by a positive Western Blot is considered POSITIVE by the CDC. Positive: 2 of the following bands: 23,39 or 41 Negative: No bands or banding patterns which do not meet positive criteria. Criteria for positivity are those recommended by CDC/ASTPHLD. p23=Osp C, f58=qkbdracjm Note: Sera from individuals with the following may cross react in the Lyme Western Blot assays: other spirochetal diseases (periodontal disease, leptospirosis, relapsing fever, yaws, and pinta); connective autoimmune (Rheumatoid Arthritis and Systemic Lupus Erythematosus and also individuals with Antinuclear Antibody); other infections ([place] Spotted Fever; Jazmyne-Goldberg Virus, and Cytomegalovirus). 5 IgG titers if 1:64 or greater indicate exposure or acute and convalescent samples showing a four-fold increase, and/or the presence of IgM indicate recent or current infection. 6 HGE IgG levels are detectable 7 to 10 days post infection and persist approximately one year. 7 Due to a reagent backorder, this test was performed using a different assay. The reference interval for this alternate assay is: Negative <1:64 Positive 1:64 or greater IgM levels usually rise 3 to 5 days post infection and fall to normal levels in approximately 30 to 60 days. 8 Negative <36.0 Equivocal 36.0 - 43.9 Positive >43.9 9 Hepatitis A, Hepatitis C and HIV antibodies may cross-react with this assay. Negative < 9.0 Equivocal 9.0 - 10.9 Positive >10.9 10 Negative <18.0 Equivocal 18.0 - 21.9 Positive >21.9 11 Negative <18.0 Equivocal 18.0 - 21.9 Positive >21.9 12 EBV Interpretation Chart Interpretation EBV-IgM EA(D)-IgG VCA-IgG EBNA-IgG EBV Seronegative - - - - Early Phase + - - - Acute Primary + +or- + - Infection Convalescence/Past - +or- + + Infection Reactivated +or- +or- + + Infection + Antibody Present - Antibody Absent 13 Because ethnic data is not always readily available, this report includes an eGFR for both -Americans and non- Americans. The National Kidney Disease Education Program (NKDEP) does not endorse the use of the MDRD equation for patients that are not between the ages of 18 and 70, are , have extremes of body size, muscle mass, or nutritional status, or are non- or non-. According to the National Kidney Foundation, irrespective of diagnosis, the stage of the disease is based on the level of kidney function: Stage Description GFR(mL/min/1.73 m(2)) 1 Kidney damage with normal or decreased GFR 90 2 Kidney damage with mild decrease in GFR 60-89 3 Moderate decrease in GFR 30-59 4 Severe decrease in GFR 15-29 5 Kidney failure <15 (or dialysis) 14 [place] Severe Sepsis and Septic Shock Management Bundle Measure requires all lactic acids initially measuring >2.0 mmol/L be repeated. 15 *Ascorbic acid is present which may interfere with detection of blood. 16 consistent w/ previous results 17 SERUM 18 Negative <1:80 Borderline 1:80 Positive >1:80 Procedures Date Code Description Status 02/22/2019 [id number] Mammogram Completed 01/31/2019 88580 Brief Emotional/Behav Assessment W/ Scoring Doc Per Completed Standard Inst 01/31/2019 12100569 Mammogram Completed 10/27/2015 [id number] Colonoscopy Completed Medical Devices Description No Information Available Encounters Type Date Location Provider Dx Diagnosis Office Visit 05/22/2019 [facility] Kay Natarajan, B27.90 Infectious 4:00p KELVIN mononucleosis, unspecified without complication F33.9 Major depressive disorder, recurrent, unspecified Office Visit 05/15/2019 11:30a [facility] Kay Maki R50.9 Fever, unspecified KELVIN Natarajan J02.9 Acute pharyngitis, unspecified Office Visit 02/20/2019 3:15p [facility] Annika Cherry, R19.7 Diarrhea, HOME HEALTH CARE WORKER unspecified Office Visit 01/31/2019 10:30a [facility] Minoo M54.5 Low back pain Sharee, HOME HEALTH CARE WORKER M25.572 Pain in left ankle and joints of left foot R14.0 Abdominal distension (gaseous) R19.4 Change in bowel habit Z80.3 Family history of malignant neoplasm of breast Z12.31 Encntr screen mammogram for malignant neoplasm of breast Z01.419 Encntr for sleeper cutter exam (general) (routine) w/o abn findings F34.1 Dysthymic disorder F41.9 Anxiety disorder, unspecified R53.83 Other fatigue G47.00 Insomnia, unspecified R10.2 Pelvic and perineal pain Office Visit 01/09/2019 10:00a [facility] Office Minoo M25.572 Pain in left Sharee, HOME HEALTH CARE WORKER ankle and joints of left foot M54.5 Low back pain R14.0 Abdominal distension (gaseous) Assessments Date Code Description Provider 06/19/2019 J06.9 Acute upper respiratory infection, Minoorupal Tolliver, HOME HEALTH CARE WORKER unspecified 06/19/2019 H92.02 Otalgia, left ear Minoochacha Tolliver, HOME HEALTH CARE WORKER 06/19/2019 R42 Dizziness and giddiness Minoochacha Tolliver, HOME HEALTH CARE WORKER 05/22/2019 B27.90 Infectious mononucleosis, unspecified KELVIN Payne without complication 05/22/2019 F33.9 Major depressive disorder, recurrent, KELVIN Payne unspecified 05/15/2019 R50.9 Fever, unspecified KELVIN Payne 05/15/2019 J02.9 Acute pharyngitis, unspecified KELVIN Payne 02/20/2019 R19.7 Diarrhea, unspecified Annika Jo Ann, [facility] 01/31/2019 M54.5 Low back pain Minoorupal Tolliver, [facility] 01/31/2019 M25.572 Pain in left ankle and joints of left foot Minoo Sharee, [facility] 01/31/2019 R14.0 Abdominal distension (gaseous) Minoo [facility], [facility] 01/31/2019 R19.4 Change in bowel habit Minoo Sharee, [facility] 01/31/2019 Z80.3 Family history of malignant neoplasm of Minoo [facility] breast 01/31/2019 Z12.31 [facility] neoplasm of 01/31/2019 Z01.419 Encounter for gynecological examination Minoo Sharee [facility] (general) (routine) 01/31/2019 F34.1 Dysthymic disorder Minoo Sharee, [facility] 01/31/2019 F41.9 Anxiety disorder, unspecified [facility], [facility] 01/31/2019 R53.[address] [facility], [facility] 01/31/2019 G47.00 Insomnia, unspecified Minoo Sharee, [facility] 01/31/2019 R10.2 Pelvic and perineal pain Minoo Sharee, [facility] 01/09/2019 M25.572 Pain in left ankle and joints of left foot Minoo Sharee, [facility] 01/09/2019 M54.5 Low back pain Minoo Sharee, [facility] 01/09/2019 R14.0 Abdominal distension (gaseous) Minoomajo Tolliver [facility] Plan of Treatment Future Appointment(s):07/01/2019 1:00 pm - Mac Felipe MD at [place] [address]/ - Minoo Sappbhart, FNPJ06.9 Acute upper respiratory infection, uyjnubtsmokI38.02 Otalgia, left earNew Medication: Flonase Allergy Relief 50 mcg/Act - 1 spray to each nostril every dayR42 Dizziness and giddinessNew Medication:Meclizine HCL 12.5 mg - 1 by mouth three times a day as needed dizziness Functional Status Description No Information Available Mental Status Description No Information Available Referrals Refer to Reason for Referral Status Appt Date Kala Cordoba Consult and treat. Office note, labs and triage Scheduled 2018 faxed. [address] [facility] [phone] [facility] left hip pain jw Scheduled 02/27/[address] [place] [address] [phone] [facility] PHYSICAL THERAPY evaluate and treat Scheduled pelvic/hip pain [address] [place] [address] [phone]
--- OUTSIDE RECORDS SUMMARY | 2019-06-23 13:39 | XMS REPORT | Continuity of Care Document ---
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 Technician [phone] [facility] - Physical Care Team Information Plant Maintenance Technician [phone] Therapist Problems Description No Information Available Social [...] Medications SIG Qnty Indications Ordering Provider Date Vitamin B Complex 1 by mouth every Unknown Tablets day Vitamin C TR 1 by mouth every Unknown 500mg Tablets day ER Vitamin D 1 by mouth every Unknown 1000Unit Tablets day otc Vitamin A Unknown [id number] Capsules History Medications Diazepam 1 po nightly for 30tabs G47.00 Minoo Tolliver, 01/31/2019 - 2mg sleep 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 PHARMACIST 05/15/2019 Tablets Naproxen 1 by mouth twice 60tabs M25.572 Minoo Tolliver, 01/09/2019 - 500mg a day with food HOSPITAL STAFF PHARMACIST 02/20/2019 Tablets Immunizations CPT Code Status Date Vaccine Lot # [id number] Given 02/22/2018 Tdap Tetanus, W Pertussis [id number] Vital Signs Date Vital Result Comment 05/15/2019 11:40am BP Systolic 110 mmHg BP Diastolic 72 mmHg Heart Rate 74 /min Body Temperature 97.9 F Respiratory Rate 20 /min Weight 210.00 lb 02/20/2019 3:09pm BP Systolic 104 mmHg BP Diastolic 62 mmHg Heart Rate 84 /min Body Temperature 98.6 F Weight 213.00 lb Results Test Date Facility Test Result H/L Range Note Laboratory test 05/15/2019 [facility] Quickstrep neg Negative finding (607)- - Laboratory test 02/19/2019 [facility] [place] Lipase 25 U/L Normal 11.0-82.0 finding C Reactive Protein 1.72 mg/L Normal <8.01 Comp Metabolic Panel 02/19/2019 [facility] [place] Sodium 141 mmol/L Normal 135-145 Potassium 3.6 [...] Egfr Non- 80.2 >60 Egfr 97.1 >60 1 Laboratory test finding 02/19/2019 [facility] [place] Lactic Acid 0.7 mmol/L Normal 0.5- 2.0 2 Urinalysis Profile 02/19/2019 [facility] [place] Urine Color Yellow Urine Appearance Clear Urine Specific Palmer 1.021 Normal 1.010-1.030 Urine pH 5.0 Normal 5-9 Urine Urobilinogen Negative Negative Urine Ketones Negative Negative Urine Protein Negative Negative Urine Leukocytes Negative Negative Urine Blood Negative Negative * * Abnormal Negative 3 Urine Nitrite Negative Negative Urine Bilirubin Negative Negative Urine Glucose Negative Negative CBC Auto Diff 02/19/2019 [facility] [place] White Blood Count 9.0 10^3/uL Normal 3.5- [...] Red Blood Cells % 0.0 Xray 02/11/2019 [facility] [place] MRI Pelvis W/O SEE ATTACHED Contrast Comprehensive 01/31/2019 [facility](fma) Sodium 142 mEq/L 134-14 Metabolic Prof 9 Potassium 4.2 mEq/L 3.6-5.5 Chloride 104 mEq/L [...] GFR >60 ml/min/1.73m^ >=60 Laboratory test 01/31/2019 [facility](a) Free T4 0.94 ng/dL 0.75- 1.54 finding TSH 2.56 mIU/L 0.50-6.00 CBC Electronic Fma 01/31/2019 [facility] Kourtney(a) WBC 5.8 x10^3/UL 4.0- 10.0 RBC 4.99 x10^6/UL 3.93-6.00 HGB 13.4 g/dL 12.0-17.0 HCT 42 % 35-50 MCV 84.8 fL 80.0-95.0 MCH 26.9 pg 25.6-32.2 MCHC 32.0 g/dL Low 32.2-36.0 4 RDW-CV 13.7 % 11.6-14.4 PLT 273 x10^3/UL 163-400 MPV 9.3 fL Low 9.4-12.4 Villa# 3.00 x10^3/UL 1.56-6.13 Lymph# 2.23 x10^3/UL 1.18-3.74 Coryell# 0.53 x10^3/UL 0.24-0.82 Eos # 0.1 x10^3/UL 0.0-0.5 Baso # 0.01 x10^3/UL 0.01-0.08 Villa% 51.3 % 34.0-70.0 Lymph % 38.2 % 20.0-52.0 Coryell% 9.1 % 5.0-12.0 Eos% 1.2 % 0.7-7.0 Baso% 0.2 % 0.1-1.2 Laboratory test 01/31/2019 [facility] Antinuclear Negative 5, 6 finding [address] [facility] Antibodies, [place] [address] (647)- - Rheumatoid 01/31/2019 [facility] Ra Latex Turbid. <10.0 IU/mL 0.0-1 Arthritis Factor 1447 [facility] 3.9 ([facility]) [place] [address] (294)- - 1 Because ethnic data is not always readily [...] 15-29 5 Kidney failure <15 (or dialysis) 2 [facility] Severe Sepsis and Septic Shock Management Bundle Measure requires all lactic acids initially measuring >2.0 mmol/L be repeated. 3 *Ascorbic acid is present which may interfere with detection of blood. 4 consistent w/ previous results 5 SERUM 6 Negative <1:80 Borderline 1:80 Positive >1:80 Procedures Date Code Description Status 02/22/2019 [id number] Mammogram Completed 01/31/2019 79235 Brief Emotional/Behav Assessment W/ Scoring Doc Per Completed Standard Inst 01/31/2019 [id number] Mammogram Completed 10/27/2015 [id number] Colonoscopy Completed Medical Devices Description No Information Available Encounters Type Date Location Provider Dx Diagnosis Office Visit 02/20/2019 Main Office EDUAR Simmons R19.7 Diarrhea, 3:15p unspecified Office Visit 01/31/2019 [facility] Office Minoo M54.5 Low back pain 10:30a Sharee, HOSPITAL STAFF PHARMACIST M25.572 Pain in left ankle and joints of left foot R14.0 Abdominal distension (gaseous) R19.4 Change in bowel habit Z80.3 Family history of malignant neoplasm of breast Z12.31 Encntr screen mammogram for malignant neoplasm of breast 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.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) (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) w/o abn findings F34.1 Dysthymic disorder F41.9 Anxiety disorder, unspecified R53.83 Other fatigue G47.00 Insomnia, unspecified R10.2 Pelvic and perineal pain Office Visit 01/09/2019 10:00a [facility] Minoo M25.572 Pain in left Sharee, HOSPITAL STAFF PHARMACIST ankle and joints of left foot M54.5 Low back pain R14.0 Abdominal distension (gaseous) Assessments Date Code Description Provider 05/15/2019 R50.9 Fever, unspecified KELVIN Payne 05/15/2019 J02.9 Acute pharyngitis, unspecified KELVIN Payne 02/20/2019 R19.7 Diarrhea, unspecified Annika Connollyr, [facility] 01/31/2019 M54.5 Low back pain Minoochacha Tolliver, [facility] 01/31/2019 M25.572 Pain in left ankle and joints of left foot Minoochacha Tolliver, [facility] 01/31/2019 R14.0 Abdominal distension (gaseous) Imnoochacha Tolliver, [facility] 01/31/2019 R19.4 Change in bowel habit Minoochacha Tolliver, [facility] 01/31/2019 Z80.3 Family history of malignant neoplasm of Minoo [facility] breast 01/31/2019 Z12.31 Encounter for screening mammogram for Minoo Tolliver [facility] malignant neoplasm of 01/31/2019 Z01.419 Encounter for gynecological examination Minoochacha Tolliver [facility] (general) (routine) 01/31/2019 F34.1 Dysthymic disorder Minoo Sharee, [facility] 01/31/2019 F41.9 Anxiety disorder, unspecified Minoo Sharee, [facility] 01/31/2019 R53.83 Other [facility] 01/31/2019 G47.00 Insomnia, unspecified Minoo Sharee, [facility] 01/31/2019 R10.2 Pelvic and perineal pain Minoo Sharee, [facility] 01/09/2019 M25.572 Pain in left ankle and joints of left foot Minoochacha Legerart, [facility] 01/09/2019 M54.5 Low back pain Minoo Sharee, [facility] 01/09/2019 R14.0 Abdominal distension (gaseous) Minoorupal Tolliver [facility] Plan of Treatment Future Appointment(s):05/22/2019 4:00 pm - KELVIN Payne at [facility]05/15/2019 - EMILY Payne.9 Fever, acbrettwynpE06.9 Acute pharyngitis, unspecifiedComments:Tylenol, Ibuprofen for aches, pain Salt water gargles Obtain bloodwork today for lyme, viral infections Follow up in 1 week or soonerAllComments:PCMHMedication Management Patient Understands medications he's taking? Yes Are there Barriers to Adherence? No Has the patient been asked about herbal supplements and therapies, and OTC meds? Yes Care Plan1. Patient has been queried about patient's goals/preferences and functional/lifestyle goals at relevant visits. Yes If relevant, describe: N/A2. Treatment goals as explained to the patient: above3. Are there barriers to meeting treatment goals? No If Yes, please describe:4. Self-Management goals as described to the patient: Yes As always, we strongly encourage a healthy diet and making physical activity a part of your every day life. If you have questions about how or where to start, please contact the office. Functional Status Description No Information Available Mental Status Description No Information Available Referrals Refer to Reason for Referral Status Appt Date Kala Cordoba Consult and treat. Office note, labs and triage Scheduled 2018 faxed. 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
--- OUTSIDE RECORDS SUMMARY | 2019-06-23 13:39 | XMS REPORT | Continuity of Care Document ---
:1965 External Reference #:[id number] Author Name KELVIN Payne Address [address] [place] [address] Care Team Providers Name Role Phone Mac Felipe MD - Family Care Team Information Bedspread Cutter Hand Medicine [facility] - Physical Care Team Information Bedspread Cutter Hand Therapist Problems Description No Information Available Social [...] Medications SIG Qnty Indications Ordering Provider Date Bupropion HCL Start 1/2 tablet 45tabs F33.9 Mac Casas 05/22/2019 75mg daily, increase MD Matteo Tablets to full tablet after 3-4 days if no stomach upset. Vitamin B Complex 1 by mouth every Unknown day Tablets Vitamin C TR 1 by mouth every Unknown 500mg day Tablets ER Vitamin D 1 by mouth every Unknown 1000Unit day otc Tablets Vitamin A Unknown [id number] Capsules History Medications Bupropion Start 1/2 30tabs F33.9 Mac Casas 05/22/2019 - Hydrochloride ER tablet daily. MD Matteo 05/22/2019 (SR) increase to 150mg Tablets ER full tablet 12HR after a few days and no stomach upset Diazepam 1 po nightly 30tabs G47.00 Minoo Tolliver, 01/31/2019 - 2mg Tablets for sleep [facility] 05/15/2019 Naproxen 1 by mouth 60tabs M25.572 Minoo Tolliver, 01/09/2019 - 500mg twice a day [facility] 02/20/2019 Tablets with food Immunizations CPT Code Status Date Vaccine Lot # [id number] Given 02/22/2018 Tdap Tetanus, W Pertussis [id number] Vital Signs Date Vital Result Comment 05/22/2019 4:01pm BP Systolic 110 mmHg BP Diastolic 74 mmHg Heart Rate 66 /min Body Temperature 98.1 F 05/15/2019 11:40am BP Systolic 110 mmHg BP Diastolic 72 mmHg Heart Rate 74 /min Body Temperature 97.9 F Respiratory Rate 20 /min Weight 210.00 lb Results Test Date Facility Test Result H/L Range Note Laboratory test 05/15/2019 [facility] Medicine Quickstrep neg Negative finding (607)- - Ua - Non Micro (a) 05/15/2019 [facility] Medicine Appearance CLEAR (607)- - Color YELLOW Glucose, Urine (Fma/CMC/CTX) NEG Bilirubin NEG Ketones TRACE SP Grav 1.025 Blood NEG PH 5.0 Protein NEG Urobil 0.2 Nitrite NEG Leukocytes (a/CMC/Centrex) NEG Comprehensive Metabolic 05/15/2019 [facility] Kourtney([facility]) Sodium 144 mEq/L 134-149 Prof Potassium 4.4 [...] ml/min/1.73m^ >=60 CBC Electronic Fma 05/15/2019 [facility] Kourtney(fma) WBC 5.8 x10^3/UL 4.0- 10.0 RBC 5.16 x10^6/UL 3.93-6.00 HGB 13.8 g/dL 12.0-17.0 HCT 44 % 35-50 MCV 84.7 fL 80.0-95.0 MCH 26.7 pg 25.6-32.2 MCHC 32.6 g/dL 32.2-36.0 RDW-CV 13.8 % 11.6-14.4 PLT 250 x10^3/UL 163-400 MPV 9.2 fL Low 9.4-12.4 Villa# 3.44 x10^3/UL 1.56-6.13 Lymph# 1.79 x10^3/UL 1.18-3.74 Appling# 0.48 x10^3/UL 0.24-0.82 Eos # 0.1 x10^3/UL 0.0-0.5 Baso # 0.01 x10^3/UL 0.01-0.08 Villa% 59.1 % 34.0-70.0 Lymph % 30.8 % 20.0-52.0 Appling% 8.2 % 5.0-12.0 Eos% 1.5 % 0.7-7.0 Baso% 0.2 % 0.1-1.2 Babesia Microti 05/15/2019 [facility] Babesia microti <1:10 Neg:<1:10 1 AB Panel [address] [place] [address] [place] [address] (038)- - Babesia microti IgG <1:10 Neg:<1:10 2 Lyme Antibody, Line 05/15/2019 [facility] IgG P93 Ab. Absent Blot, Serum [address] [place] [phone] (098)- - IgG P66 Ab. Absent IgG P58 [...] Panel 05/15/2019 [facility] E. chaffeensis Negative Neg:<1:64 14[address] [facility] ([facility] [place] [address] (607)- - E. chaffeensis ([facility]) IgM Titer Negative Neg:<1:20 5 Hge IgG Titer Negative Neg:<1:64 6 H[facility] IgM Titer Negative Neg:<1:20 7 Ebv Acute Infection 05/15/2019 [facility] Ebv Ab Vca, <36.0 U/mL 0.0-35.9 8 Antibodies Profile 14[address] [facility] [place] [address] (607)- - Ebv Early Antigen Ab, IgG 16.9 U/mL High 0.0-8.9 9 Ebv Ab Vca, IgG 51.8 U/mL High 0.0-17.9 10 Ebv Nuclear Antigen Ab, IgG 135.0 U/mL High 0.0-17.9 11 Interpretation: See Comment: 12 Laboratory test finding 02/19/2019 [facility] [place] Lipase 25 U/L Normal 11.0-82.0 C Reactive Protein 1.72 mg/L Normal <8.01 Comp Metabolic Panel 02/19/2019 [facility] Sodium 141 mmol/L Normal 135-145 Potassium 3.6 [...] 97.1 >60 13 Laboratory test finding 02/19/2019 [facility] Lactic Acid 0.7 mmol/L Normal 0.5- 2.0 14 Urinalysis Profile 02/19/2019 [facility] Urine Color Yellow Urine Appearance Clear Urine Specific Sherman 1.021 Normal 1.010-1.030 Urine pH 5.0 Normal 5-9 Urine Urobilinogen Negative Negative Urine Ketones Negative Negative Urine Protein Negative Negative Urine Leukocytes Negative Negative Urine Blood Negative Negative * * Abnormal Negative 15 Urine Nitrite Negative Negative Urine Bilirubin Negative Negative Urine Glucose Negative Negative CBC Auto Diff 02/19/2019 [facility] [place] White Blood Count 9.0 10^3/uL Normal 3.5- [...] Red Blood Cells % 0.0 Xray 02/11/2019 [facility] [place] MRI Pelvis W/O SEE ATTACHED Contrast Comprehensive [...] >60 ml/min/1.73m^ >=60 Laboratory test 01/31/2019 Nitin Oconnell([facility]) Free T4 0.94 ng/dL 0.75- 1.54 finding TSH 2.56 mIU/L 0.50-6.00 CBC Electronic Fma 01/31/2019 Nitin Oconnell([facility]) WBC 5.8 x10^3/UL 4.0- 10.0 RBC 4.99 x10^6/UL 3.93-6.00 HGB 13.4 g/dL 12.0-17.0 HCT 42 % 35-50 MCV 84.8 fL 80.0-95.0 MCH 26.9 pg 25.6-32.2 MCHC 32.0 g/dL Low 32.2-36.0 16 RDW-CV 13.7 % 11.6-14.4 PLT 273 x10^3/UL 163-400 MPV 9.3 fL Low 9.4-12.4 Villa# 3.00 x10^3/UL 1.56-6.13 Lymph# 2.23 x10^3/UL 1.18-3.74 Appling# 0.53 x10^3/UL 0.24-0.82 Eos # 0.1 x10^3/UL 0.0-0.5 Baso # 0.01 x10^3/UL 0.01-0.08 Villa% 51.3 % 34.0-70.0 Lymph % 38.2 % 20.0-52.0 Appling% 9.1 % 5.0-12.0 Eos% 1.2 % 0.7-7.0 Baso% 0.2 % 0.1-1.2 Laboratory test 01/31/2019 [facility] Antinuclear Negative 17, 18 finding 1447 [facility] Antibodies, [place] [address] (607)- - Rheumatoid 01/31/2019 [facility] Ra Latex Turbid. <10.0 IU/mL 0.0-1 Arthritis Factor 14[address] [facility] 3.9 ([facility]) [place] [address] (600)- - 1 3 ssts 2 This test was developed and its performance characteristics determined by [email or web address]. It has not been cleared or approved [...] are those recommended by CDC/ASTPHLD. p23=Osp C, z73=nylhcgzis Note: Sera from individuals with the following may cross react in the Lyme Western Blot assays: other spirochetal diseases (periodontal disease, leptospirosis, relapsing fever, yaws, and pinta); connective autoimmune (Rheumatoid Arthritis and Systemic Lupus Erythematosus and also individuals with Antinuclear Antibody); other infections ([place] Hawk Spotted Fever; Jazmyne-Goldberg Virus, and Cytomegalovirus). 5 [...] 5 Kidney failure <15 (or dialysis) 14 [facility] Severe Sepsis and Septic Shock Management Bundle Measure requires all lactic acids initially measuring >2.0 mmol/L be repeated. 15 *Ascorbic acid is present which may interfere with detection of blood. 16 consistent w/ previous results 17 SERUM 18 Negative <1:80 Borderline 1:80 Positive >1:80 Procedures Date Code Description Status 02/22/2019 [id number] Mammogram Completed 01/31/2019 20031 Brief Emotional/Behav Assessment W/ Scoring Doc Per Completed Standard Inst 01/31/2019 [id number] Mammogram Completed 10/27/2015 [id number] Colonoscopy Completed Medical Devices Description No Information Available Encounters Type Date Location Provider Dx Diagnosis Office Visit 05/15/2019 [facility] Office Kay Natarajan, R50.9 Fever, unspecified 11:30a PA J02.9 Acute pharyngitis, unspecified Office Visit 02/20/2019 3:15p Main Office Annika Connollyr, R19.7 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, 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 Office Visit 01/31/2019 10:30a [facility] Office Minoo M54.5 Low back pain Sharee, FABRIC MACHINE OPERATOR M25.572 Pain in left ankle and joints of left foot R14.0 Abdominal distension (gaseous) R19.4 Change in bowel habit Z80.3 Family history of malignant neoplasm of breast Z12.31 Encntr screen mammogram for malignant neoplasm of breast Z01.419 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9 Fever, unspecified KELVIN Payne 05/15/2019 J02.9 Acute pharyngitis, unspecified KELVIN Payne 02/20/2019 R19.7 Diarrhea, unspecified Annika Cherry, FABRIC MACHINE OPERATOR 01/31/2019 M54.5 Low back pain Minoo Sharee, [facility] 01/31/2019 M25.572 Pain in left ankle and joints of left foot Minoo Sharee, [facility] 01/31/2019 R14.0 Abdominal distension (gaseous) Minoo Sharee, [facility] 01/31/2019 R19.4 [facility] 01/31/2019 Z80.3 Family history of malignant neoplasm of EDUAR Blount breast 01/31/2019 Z12.31 Encounter for screening mammogram for EDUAR Blount malignant neoplasm of 01/31/2019 Z01.419 Encounter for gynecological examination EDUAR Blount (general) (routine) 01/31/2019 F34.1 Dysthymic disorder Minoo Tolliver, [facility] 01/31/2019 F41.9 Anxiety disorder, unspecified Minoo Tolliver, [facility] 01/31/2019 R53.83 Other fatigue Minoo Tolliver, [facility] 01/31/2019 G47.00 Insomnia, unspecified Minoo Tolliver, [facility] 01/31/2019 R10.2 Pelvic and perineal pain Minoo Tolliver, [facility] 01/09/2019 M25.572 Pain in left ankle and joints of left foot Minoo Tolliver, [facility] 01/09/2019 M54.5 Low back pain Minoo Tolliver, [facility] 01/09/2019 R14.0 Abdominal distension (gaseous) ALEXIS BlountP Plan of Treatment Future Appointment(s):07/01/2019 1:00 pm - Mac Felipe MD at [facility]05/22/2019 - Kay Natarajan, PAB27.90 Infectious mononucleosis, unspecified without complicationComments:Time, good nutrition, lots of fluids, rest Left side abdominal pain you are having could be more from your sleep, the mono virus can cause inflamed spleens be careful to avoid impact to the area, caution around your horses, childrenGood protein in the morning- protein, greens powder with fruits, water (can use ice in place of yogurt). Call if symptoms worsen, change, or don't improve over the next few weeks. Follow up with Dr. Felipe in 1 zwczcE22.9 Major depressive disorder, recurrent, unspecifiedNew Medication:Bupropion HCL 75 mg - Start 1/2 tablet daily, increase to full tablet after 3-4 days if no stomach upset.Bupropion Hydrochloride ER (SR) 150 mg - Start 1/2 tablet daily. increase to full tablet after a fewdays and no stomach upsetComments:Start Welbutrin 1/2 tablet in the morning with food, increase to full tablet after a few days. Checkin via portal in 2 weeks to let me know how it is going. Matteo in 1 month. Call with any adverse effects, increase in anxiety.AllComments:PCMHMedication Management Patient Understands medications he's taking? Yes [...] barriers to meeting treatment goals? No If Yes , please describe:4. Self-Management goals as described to [...] and triage Scheduled 2018 faxed. 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
[2019-06-23 14:39] LABS: ABS Eosinophils 0.1 10^3/ul (0-0.6); ABS Lymphocytes 2.2 10^3/ul (1.0-4.8); ABS Monocytes 0.5 10^3/ul (0-0.8); ABS Neutrophils 3.9 10^3/ul (1.5-7.7); Hematocrit 42 % (35-47); Hemoglobin 13.9 g/dL (12.0-16.0); Lymphocyte % 32.5 %; Mean Corpuscular HGB Conc 33 g/dL (31-36); Mean Corpuscular Hemoglobin 27 pg (27-31); Mean Corpuscular Volume 82 fL (80-97); Mean Platelet Volume 7.7 fL (7.4-10.4); Platelet Count 254 10^3/uL (150-450); Red Blood Count 5.16 10^6 /uL (3.70-4.87); Red Cell Distribution Width 14 % (10-15); White Blood Count 6.8 10^3/uL (3.5-10.8)
[2019-06-23 14:55] LABS: Albumin 4.1 g/dL (3.2-5.2); Albumin/Globulin Ratio 1.8 (1-3); BUN/Creatinine Ratio 13.9 (8-20); C Reactive Protein 1.42 mg/L (<8.01); Calcium 8.6 mg/dL (8.6-10.3); EGFR African American 92.8 (>60); EGFR Non-African American 76.7 (>60); Globulin 2.3 g/dL (2-4); Total Bilirubin 0.3 mg/dL (0.2-1.0); Total Protein 6.4 g/dL (6.4-8.9)
--- NOTE | 2019-06-23 17:03 | ED ---
Abdominal Pain/Female - HPI Summary HPI Summary: This pt is a 53 Y/O F presenting to [facility] with a CC of abdominal pain that started this morning and is currently rated a 5/10 in severity. She has had a Dx of mono for 3 weeks now and states that her symptoms are getting worse since 06/17/19. She states that she has been able to do chores until then when she has been unable to get out of bed. She states that she has had coughs, N, fevers, decreased appetite, and a sore throat. She denies any vomiting and productive coughs. She states that her fianc is a heavy smoker. She has no aggravating or alleviating factors. She has a PMHx of GERD. - History of Current Complaint Chief Complaint: EDGeneral Stated Complaint: SIDE PAIN PER PT Time Seen by Provider: 06/23/19 16:48 Hx Obtained From: Patient Hx Last Menstrual Period: 2013 ?: No Onset/Duration: Sudden Onset, Lasting Hours, Still Present Timing: Constant Severity Initially: Moderate Severity Currently: Moderate Pain Intensity: 5 Pain Scale Used: 0-10 Numeric Location: Diffuse Radiates: No Aggravating Factor(s): Nothing Alleviating Factor(s): Nothing Associated Signs and Symptoms: Positive: Diaphoresis, Fever, Cough, Decreased Appetite, Nausea. Negative: Vomiting, Diarrhea Allergies/Adverse Reactions: Allergies Allergy/AdvReac Type Severity Reaction Status Date / Time Sulfa (Sulfonamide Allergy Anaphylatic Verified 02/05/19 13:52 Antibiotics) Shock PMH/Surg Hx/FS Hx/Imm Hx Previously Healthy: Yes Endocrine/Hematology History: Denies: Hx Diabetes, Hx Thyroid Disease Cardiovascular History: Denies: Hx Congestive Heart Failure, Hx Deep Vein Thrombosis, Hx Hypertension , Hx Myocardial Infarction, Hx Pacemaker/ICD Respiratory History: Reports: Hx Asthma - Exercise-induced asthma. Denies: Hx Chronic Obstructive Pulmonary Disease (COPD), Hx Lung Cancer, Hx Pneumonia, Hx Pulmonary Embolism GI History: Reports: Hx Gastroesophageal Reflux Disease Denies: Hx Gall Bladder Disease, Hx Gastrointestinal Bleed, Hx Ulcer, Hx Urosepsis History: Denies: Hx Kidney Stones, Hx Renal Disease Sensory History: Denies: Hx Hearing Aid Neurological History: Denies: Hx Dementia, Hx Migraine, Hx Seizures, Hx Transient Ischemic Attacks (TIA) Psychiatric History: Denies: Hx Anxiety, Hx Depression, Hx Panic Disorder, Hx Schizophrenia, Hx Bipolar Disorder - Cancer History Hx Chemotherapy: No Hx Radiation Therapy: No - Surgical History Surgical History: Yes Surgery Procedure, Year, and Place: HYSTERECTOMY. DEVIATED SEPTUM 1991. WISDOM TEETH - Immunization History Immunizations Up to Date: Yes Infectious Disease History: No Infectious Disease History: Denies: Traveled Outside the [place] in Last 30 Days - Family History Known Family History: Positive: Cardiac Disease - grandfather - mi, Other - mother - osteoporosis No blood clotting problems in the family. - Social History Occupation: Unemployed Lives: With Family Alcohol Use: Rare Hx Substance Use: No Substance Use Type: Reports: None Hx Tobacco Use: No Smoking Status (MU): Never Smoked Tobacco Review of Systems Positive: Fever, Fatigue, Skin Diaphoresis Positive: Sore Throat Positive: Cough Positive: Abdominal Pain, Nausea, Other - decreased appetite . Negative: Vomiting, Diarrhea All Other Systems Reviewed And Are Negative: Yes Physical Exam - Summary Physical Exam Summary: General: Obese female in no apparent distress or ill appearing HEENT: Normocephalic, Atraumatic. Eyes: Conjuctiva normal, PERRL. Ears: TMs within normal limits. Nares: (-) discharge, (-) erythema. Oropharynx: Clear, mucous membranes moist, (-) exudates. Neck: Soft, FROM, (-) lymphadenopathy, (-) thyromegaly, (-) JVD. Cardiovascular: Normal sinus rhythm, (-) murmur. Lungs: Clear to auscultation bilaterally (-) wheezes, (-) rales, (-) rhonchi. Abdomen: Soft, Moderate left upper quadrant abdominal tenderness, non-distended , (-) organomegaly, normal bowel sounds. Back: (-) CVA tenderness Extremities: No edema. Skin: Warm, dry, (-) rash. Neuro: Alert and oriented x3, no focal deficits. Psychiatric: Mood normal, affect normal. Triage Information Reviewed: Yes Vital Signs On Initial Exam: Initial Vitals Temp Pulse Resp BP Pulse Ox 99.1 F 75 16 118/69 99 06/23/19 13:26 06/23/19 13:26 06/23/19 13:26 06/23/19 13:26 06/23/19 13:26 Vital Signs Reviewed: Yes Diagnostics - Vital Signs Vital Signs Temp Pulse Resp BP Pulse Ox 06/23/19 13:26 99.1 F 75 16 118/69 99 - Laboratory Lab Results: Lab Results 06/23/19 06/23/19 Range/Units 14:20 14:20 WBC 6.8 (3.5-10.8) 10^3/uL RBC 5.16 H (3.70-4.87) 10^6 /uL Hgb 13.9 (12.0-16.0) g/dL Hct 42 (35-47) % MCV 82 (80-97) fL MCH 27 (27-31) pg MCHC 33 (31-36) g/dL RDW 14 (10-15) % Plt Count 254 (150-450) 10^3/uL MPV 7.7 (7.4-10.4) fL Neut % (Auto) 57.4 % Lymph % (Auto) 32.5 % [place] % (Auto) 7.6 % Eos % (Auto) 2.0 % Baso % (Auto) 0.5 % Absolute Neuts (auto) 3.9 (1.5-7.7) 10^3/ul Absolute Lymphs (auto) 2.2 (1.0-4.8) 10^3/ul Absolute Monos (auto) 0.5 (0-0.8) 10^3/ul Absolute Eos (auto) 0.1 (0-0.6) 10^3/ul Absolute Basos (auto) 0.0 (0-0.2) 10^3/ul Absolute Nucleated RBC 0.0 10^3/ul Nucleated RBC % 0.0 Sodium 139 (135-145) mmol/L Potassium 4.0 (3.5-5.0) mmol/L Chloride 108 (101-111) mmol/L Carbon Dioxide 27 (22-32) mmol/L Anion Gap 4 (2-11) mmol/L BUN 11 (6-24) mg/dL Creatinine 0.79 (0.51-0.95) mg/dL Est GFR ( Amer) 92.8 (>60) Est GFR (Non-Af Amer) 76.7 (>60) BUN/Creatinine Ratio 13.9 (8-20) Glucose 117 H (70-100) mg/dL Calcium 8.6 (8.6-10.3) mg/dL Total Bilirubin 0.30 (0.2-1.0) mg/dL AST 15 (13-39) U/L ALT 12 (7-52) U/L Alkaline Phosphatase 51 (34-104) U/L C-Reactive Protein 1.42 (<8.01) mg/L Total Protein 6.4 (6.4-8.9) g/dL Albumin 4.1 (3.2-5.2) g/dL Globulin 2.3 (2-4) g/dL Albumin/Globulin Ratio 1.8 (1-3) Lipase 26 (11.0-82.0) U/L Result Diagrams: 06/23/19 14:20 06/23/19 14:20 Lab Statement: Any lab studies that have been ordered have been reviewed, and results considered in the medical decision making process. - CT CT A/P CT Interpretation Completed By: Radiologist Summary of CT Findings: No significant splenic abnormalities. Stable hepatic cysts, which needs no further followup. No acute process in the abdomen or pelvis. ED physician has reviewed this report. Abdominal Pain Fem Course/Dx - Course Course Of Treatment: This pt is a 53 Y/O F presenting to [facility] with a CC of abdominal pain that started this morning and is currently rated a 5/10 in severity. She has had a Dx of mono for 3 weeks now and states that her symptoms are getting worse since 06/17/19. She states that she has been able to do chores until then when she has been unable to get out of bed. Her PE found that she had mild left upper quadrant abdominal tenderness. Her CT A/P found the following: No significant splenic abnormalities. Stable hepatic cysts, which needs no further followup. No acute process in the abdomen or pelvis. She had no acute labratory findings. She will be discharged home with a Dx of [place] given that she is still only 3 weeks out from the original diagnosis. - Diagnoses Provider Diagnoses: [place] exposure Discharge ED - Sign-Out/Discharge Documenting (check all that apply): Patient Departure - discharge Patient Received Moderate/Deep Sedation with Procedure: No - Discharge Plan Condition: Stable Disposition: HOME Patient Education Materials: Mononucleosis (ED) Referrals: Mac Felipe MD [Primary Care Provider] - 3 Days Additional Instructions: PLEASE FOLLOW UP WITH YOUR PRIMARY CARE PHYSICIAN IN 1-3 DAYS AND RETURN TO THE EMERGENCY DEPARTMENT FOR ANY NEW OR WORSENING SYMPTOMS. Get plenty of rest and make sure to drink plenty of fluids. - Billing Disposition and Condition Condition: STABLE Disposition: Home - Attestation Statements Document Initiated by Stevie: Yes Documenting Scribe: Mars Perdomo Provider For Whom Stevie is Documenting (Include Credential): Donna Kim MD Scribe Attestation: Mars Jackson, scribed for Donna Kim MD on 06/25/19 at 1945. Scribe Documentation Reviewed: Yes Provider Attestation: The documentation as recorded by the Mars ramires accurately reflects the service I personally performed and the decisions made by me, Donna Kim MD Status of Scribe Document: Viewed
[2019-06-23 17:21] LABS: Urine Appearance Clear; Urine Bilirubin Negative (Negative); Urine Blood Negative (Negative); Urine Color Yellow; Urine Glucose Negative (Negative); Urine Ketones Negative (Negative); Urine Nitrite Negative (Negative); Urine Protein Negative (Negative); Urine Specific Gravity 1.021 (1.010-1.030); Urine Urobilinogen Negative (Negative)
[2019-06-23] MEDS ORDERED: Iohexol 300* (CONTRAST) 10 ML SDV IV ONE (18:48)
[2019-06-23 19:53] VITALS: BP 105/68
== END 2019-06-23 19:51 | disposition home or self-care (01) ==
LOC: ED 13:22
DX: Z20.828 Contact with and (suspected) exposure to other viral communicable diseases (principal); K21.9 Gastro-esophageal reflux disease without esophagitis; Z90.710 Acquired absence of both cervix and uterus; Z88.2 Allergy status to sulfonamides
CPT/HCPCS: 36415; 74177; 80053; 81003; 83690; 85025; 86140; 99283; Q9967